=== PATIENT | female | born 1980 | race Caucasian/White ===

== ENCOUNTER → 2016-11-16 | Outpatient (REF) | payer OTHER | LOC: M SFHCLERA 15:58 | PROVIDERS: ATTEND Physician Assistant | DX: R73.01 Impaired fasting glucose (principal); E03.9 Hypothyroidism, unspecified ==

== ENCOUNTER → 2017-05-27 | Outpatient (REF) | payer OTHER ==
[2017-05-27 21:22] LABS: ESTIMATED AVERAGE GLUCOSE 174 MG/DL (60-110); HEMOGLOBIN A1c 7.7 %
[2017-05-27 21:25] LABS: TOTAL 25(OH) VITAMIN D 43.4 NG/ML (30.0-100.0)
[2017-05-27 21:26] LABS: ALBUMIN 3.8 GM/DL (3.2-5.2); ALBUMIN/GLOBULIN RATIO 1.12 (1.00-1.93); ALKALINE PHOSPHATASE 92 U/L (45-117); ALT/SGPT 23 U/L (12-78); ANION GAP 8 MEQ/L (8-16); AST/SGOT 9 U/L (7-37); BILIRUBIN,TOTAL 0.5 MG/DL (0.2-1.0); BLOOD UREA NITROGEN 17 MG/DL (7-18); CALCIUM LEVEL 8.5 MG/DL (8.5-10.1); CARBON DIOXIDE LEVEL 28 MEQ/L (21-32); CHLORIDE LEVEL 102 MEQ/L (98-107); CREATININE FOR GFR 0.94 MG/DL (0.55-1.30); GLOMERULAR FILTRATION RATE > 60.0 (>60); GLUCOSE, FASTING 140 MG/DL (70-100); POTASSIUM SERUM 4.3 MEQ/L (3.5-5.1); SODIUM LEVEL 138 MEQ/L (136-145); TOTAL PROTEIN 7.2 GM/DL (6.4-8.2)
== END ==
LOC: M SFHCLERA 16:09
DX: E11.65 Type 2 diabetes mellitus with hyperglycemia (principal); E03.9 Hypothyroidism, unspecified; E55.9 Vitamin D deficiency, unspecified

== ENCOUNTER → 2018-01-19 | Outpatient (REF) | payer OTHER ==
[2018-01-19 19:16] LABS: ESTIMATED AVERAGE GLUCOSE 146 MG/DL (60-110); HEMOGLOBIN A1c 6.7 %
[2018-01-19 19:19] LABS: THYROID STIMULATING HORMONE 0.744 uIU/ML (0.358-3.740)
[2018-01-19 19:33] LABS: TESTOSTERONE 13 NG/DL (14-76)
[2018-01-23 00:09] LABS: ESTROGENS TOTAL 70 pg/mL (.)
[2018-01-26 00:07] LABS: TESTOSTERONE DI-5-ALPHA LEVEL 2.8 ng/dL (.)
== END ==
LOC: M SFHCPLAZ 15:23
DX: L65.8 Other specified nonscarring hair loss (principal); E03.9 Hypothyroidism, unspecified; E11.65 Type 2 diabetes mellitus with hyperglycemia

== ENCOUNTER → 2019-03-12 | Outpatient (REF) | payer OTHER ==
[2019-03-12 20:24] LABS: HEMATOCRIT 42.5 % (36.0-47.0); HEMOGLOBIN 13.7 g/dl (12.0-15.5)
[2019-03-12 20:31] LABS: BLOOD UREA NITROGEN 8 MG/DL (7-18); CALCIUM LEVEL 9.4 MG/DL (8.5-10.1); CARBON DIOXIDE LEVEL 27 MEQ/L (21-32); CHLORIDE LEVEL 101 MEQ/L (98-107); CHOLESTEROL LEVEL 209 MG/DL (<200); CHOLESTEROL RISK RATIO 4.976 (<5); CREATININE FOR GFR 0.78 MG/DL (0.55-1.30); GLOMERULAR FILTRATION RATE > 60.0 (>60); GLUCOSE, FASTING 100 MG/DL (70-100); HDL CHOLESTEROL 42 MG/DL (>40); LDL CHOLESTEROL 111 MG/DL (<100); NON-HDL-C 167 MG/DL; POTASSIUM SERUM 4.3 MEQ/L (3.5-5.1); SODIUM LEVEL 136 MEQ/L (136-145); TRIGLYCERIDES LEVEL 282 MG/DL (<150)
[2019-03-12 20:39] LABS: MALB URINE SIEMENS 22.1 MG/L; MAU/CREAT RATIO 20.4 MCG/MG (0.0-30.0)
[2019-03-12 20:40] LABS: VITAMIN B12 LEVEL 458 PG/ML (247-911)
[2019-03-12 20:43] LABS: HEMOGLOBIN A1c 6.9 %
== END ==
LOC: M SFHCLERA 14:50
PROVIDERS: ATTEND Family Medicine
DX: E11.9 Type 2 diabetes mellitus without complications (principal)

== ENCOUNTER → 2019-10-08 | Outpatient (REF) | payer OTHER ==
[2019-10-08 16:51] LABS: HEMOGLOBIN A1c 7.9 %
[2019-10-08 17:01] LABS: BLOOD UREA NITROGEN 10 MG/DL (7-18); CALCIUM LEVEL 9.3 MG/DL (8.5-10.1); CARBON DIOXIDE LEVEL 22 MEQ/L (21-32); CHLORIDE LEVEL 105 MEQ/L (98-107); CREATININE FOR GFR 0.76 MG/DL (0.55-1.30); GLOMERULAR FILTRATION RATE > 60.0 (>60); GLUCOSE, FASTING 100 MG/DL (70-100); POTASSIUM SERUM 4.1 MEQ/L (3.5-5.1); SODIUM LEVEL 138 MEQ/L (136-145)
== END ==
LOC: M SFHCLERA 14:10
PROVIDERS: ATTEND Family Medicine
DX: E11.9 Type 2 diabetes mellitus without complications (principal)

== ENCOUNTER → 2019-12-27 | Outpatient (CLI) | payer OTHER ==
--- NOTE | 2020-01-14 17:02 | REP ---
GALLBLADDER ULTRASOUND: CLINICAL: Right upper quadrant pain with nausea, vomiting and diarrhea. TECHNIQUE: Real time, campos scale and color evaluation using curved array transducer. FINDINGS: The liver demonstrates a few scattered hypoechoic areas within the right lobe measuring 1.5 cm maximal diameter and within the left lobe measuring 1.9 cm and 1.5 cm maximal diameter which are nonspecific in their appearance and may represent complex cysts or atypical hemangiomas as well as other lesions. The pancreas is normal in appearance and echotexture. The gallbladder is unremarkable and without gallstones, wall thickening or pericholecystic fluid. No biliary ductal dilatation is appreciated and the common bile duct measures 6.5 mm diameter. The right kidney is normal in reniform shape without hydronephrosis and measures 11.5 x 6.1 x 4.6 cm. No ascites in the visualized right upper quadrant. IMPRESSION: 1. Three hypodense lesions within the liver as described above. Findings are nonspecific by ultrasound and were not identified on prior ultrasound of 04/29/08. Consider pre and post contrast CT of the abdomen for further investigation. 2. Otherwise, normal right upper quadrant and gallbladder ultrasound. MTDD
== END ==
LOC: M RAD 06:02
PROVIDERS: ATTEND Nurse Practitioner Family
DX: K76.9 Liver disease, unspecified (principal); R11.2 Nausea with vomiting, unspecified; R19.7 Diarrhea, unspecified; R10.11 Right upper quadrant pain

== ENCOUNTER → 2020-01-16 | Outpatient (CLI) | payer OTHER ==
[2020-01-16 11:30] LABS: ALBUMIN 3.7 GM/DL (3.2-5.2); BILIRUBIN,DIRECT 0.1 MG/DL (0.0-0.2); BILIRUBIN,TOTAL 0.3 MG/DL (0.2-1.0); FREE T4 1.43 NG/DL (0.76-1.46); THYROID STIMULATING HORMONE 0.605 uIU/ML (0.358-3.740); TOTAL PROTEIN 7.1 GM/DL (6.4-8.2)
== END ==
LOC: M LAB 10:14
PROVIDERS: ATTEND Internal Medicine Gastroenterology
DX: R11.10 Vomiting, unspecified (principal)

== ENCOUNTER → 2020-01-19 | Outpatient (REF) | payer OTHER | LOC: M LAB REF 09:22 | PROVIDERS: ATTEND Internal Medicine Gastroenterology | DX: R11.10 Vomiting, unspecified (principal) ==

== ENCOUNTER → 2020-02-07 | Outpatient (CLI) | payer OTHER ==
[2020-02-07 09:58] LABS: BLOOD UREA NITROGEN 13 MG/DL (7-18); CALCIUM LEVEL 9.4 MG/DL (8.5-10.1); CARBON DIOXIDE LEVEL 26 MEQ/L (21-32); CHLORIDE LEVEL 101 MEQ/L (98-107); CHOLESTEROL LEVEL 194 MG/DL (<200); CHOLESTEROL RISK RATIO 4.511 (<5); CREATININE FOR GFR 0.88 MG/DL (0.55-1.30); GLOMERULAR FILTRATION RATE > 60.0 (>60); GLUCOSE, FASTING 115 MG/DL (70-100); HDL CHOLESTEROL 43 MG/DL (>40); LDL CHOLESTEROL 111 MG/DL (<100); NON-HDL-C 151 MG/DL; POTASSIUM SERUM 4.5 MEQ/L (3.5-5.1); SODIUM LEVEL 136 MEQ/L (136-145); TRIGLYCERIDES LEVEL 199 MG/DL (<150)
[2020-02-07 10:11] LABS: MALB URINE SIEMENS 22.5 MG/L; MAU/CREAT RATIO 13.9 MCG/MG (0.0-30.0)
[2020-02-07 10:31] LABS: HEMOGLOBIN A1c 6.8 %
== END ==
LOC: M LAB 08:31
PROVIDERS: ATTEND Family Medicine
DX: E78.2 Mixed hyperlipidemia (principal); E11.9 Type 2 diabetes mellitus without complications

== ENCOUNTER → 2020-02-29 | Outpatient (CLI) | payer OTHER ==
[~2020-02-29] MED LIST: PROHANCE 279.3MG/ML 15ML VIAL As Ordered ONE; PROHANCE 279.3MG/ML 5ML VIAL As Ordered ONE
--- NOTE | 2020-02-29 14:38 | REP ---
INDICATION: ABNORMAL FINDINGS ON DX IMAGING OF LIVER AND BILIARY TRACT. MRCP and MRI protocol. COMPARISON: Comparison CT study February 12, 2020.. TECHNIQUE: Axial and coronal T2 weighted scans are followed by MRCP acquisition. Maximum 10 City projection images are re-formatted. Axial and coronal imaging planes are utilized. MRI sequences include spin echo, fast spin echo, FLAIR, in and out of phase, diffusion, and dynamically acquired sequential postcontrast images. Gadolinium enhancement dose is 18 mL of intravenous ProHance. FINDINGS: The intrahepatic and extrahepatic biliary tract is normal in caliber. By pancreatic duct is normal in caliber and course. There is no evidence of biliary calculus or mass lesion. On T2 weighted scans, there area 5 separate focal T2 hyperintense lesions in the left and right lobe of the liver. Some of these correspond with the lesions identified by ultrasound. These are essentially isointense on signal intensity on T1 weighted scans. Lesions are most conspicuous on arterial phase post-contrast T1 weighted imaging indicating that they are hypervascularr. Largesr of these is in the left lobe anteriorly measuring 2.1 cm. 12 mm or less in diameter. This arterial phase sequence demonstrates that there are actually had a number of punctate foci of hypervascularity which may be small similar lesions. With subsequent equilibrium and delayed 10 minutes postcontrast imaging, these lesions retained blood pool level activity No renal pancreatic or splenic mass lesion is seen. Normal adrenal glands are observed bilaterally. No retroperitoneal mass mass or adenopathy is observed. The liver is at the upper range of normal with a 16.4 cm midclavicular vertical span. IMPRESSION: Numerous hypervascular liver lesions ranging from punctate foci of hypervascularity to the lesion in the left lobe measuring 2.1 cm. These are not typical of benign hemangiomas in that they are hypoechoic on ultrasound and homogeneously hypervascular on the arterial phase sequence. Adenomas can be multiple. Focal nodular hyperplasia is in the differential. Hypervascular metastases cannot be excluded. Recommendation: Consider ultrasound directed needle aspiration biopsy. <Electronically signed by Gary Wright > 02/29/20 7200
== END ==
LOC: M RAD 11:06
PROVIDERS: ATTEND Internal Medicine Gastroenterology
DX: R93.2 Abnormal findings on diagnostic imaging of liver and biliary tract (principal); K76.89 Other specified diseases of liver
CPT/HCPCS: 74183; A9576

== ENCOUNTER → 2020-03-16 | Outpatient (CLI) | payer OTHER ==
[~2020-03-16] MED LIST changes: +ACET500T15 PO; +BUPR150T5 PO; +DICY20TA11 PO; +LEVO137T2 PO; +LISI10TA4 PO; +METF-838 PO; +METF500T13 PO; +OMEP-221 PO; -PROHANCE 279.3MG/ML 15ML VIAL As Ordered ONE; -PROHANCE 279.3MG/ML 5ML VIAL As Ordered ONE; +SETL1TAB PO; +SPIR-10 PO
== END ==
LOC: M LABSMTC 09:18
PROVIDERS: ATTEND Anesthesiology
DX: Z01.812 Encounter for preprocedural laboratory examination (principal); Z20.828 Contact with and (suspected) exposure to other viral communicable diseases

== ENCOUNTER 2020-03-21 07:23 | Day surgery (SDC) | payer OTHER ==
[~2020-03-21] VITALS: Ht 167.6 cm; Wt 92.4 kg
[~2020-03-21 07:23] MED LIST changes: +NS 1,000 ML IV ONE
[2020-03-21] MEDS ORDERED: propofoL 200 MG/20 ML VIAL As Ordered ONE ×2 (09:01→09:14)
[2020-03-21] MEDS ORDERED: LIDOCAINE 2% 100MG/5ML SDV (FOR ANES.) As Ordered ONE (09:01)
--- NOTE | 2020-03-21 09:24 | ROOR ---
Patient Name: Ne Sim Procedure Date: 03/21/2020 8:53 AM Date of : 1980 Age: 39 Room: [facility] Gender: Female Note Status: Finalized Procedure: Colonoscopy Indications: Suspected irritable bowel syndrome, Change in bowel habits Providers: Seamus SAPP MD Referring MD: DAVON BIRMINGHAM MD Requesting Provider: Medicines: Monitored Anesthesia Care Complications: No immediate complications. Procedure: Pre-Anesthesia Assessment: - The heart rate, respiratory rate, oxygen saturations, blood pressure, adequacy of pulmonary ventilation, and response to care were monitored throughout the procedure. The Colonoscope was introduced through the anus and advanced to 10 cm into the ileum. The colonoscopy was performed without difficulty. The patient tolerated the procedure well. The quality of the bowel preparation was good. Findings: The perianal and digital rectal examinations were normal. The entire examined colon appeared normal on direct and retroflexion views. The terminal ileum appeared normal. Impression: - Small internal hemorrhoids. - The entire colon is normal on direct and retroflexion views. - The examined portion of the ileum was normal. - No specimens collected. - (Irritable Bowel Syndrome/IBS suspected.) Recommendation: - Continue present medications. - As discussed, your MRI liver was abnormal. Liver biopsy is required. - My office will call you in the next few days to set you up for this study/exam. Procedure Code(s): --- Professional --- 25897, Colonoscopy, flexible; diagnostic, including collection of specimen(s) by brushing or washing, when performed (separate procedure) Diagnosis Code(s): --- Professional --- R19.4, Change in bowel habit CPT copyright 2019 [employer]. All rights reserved. The codes documented in this report are preliminary and upon pocket operator review may be revised to meet current compliance requirements. Seamus Sapp MD Seamus SAPP MD 03/21/2020 9:24:52 AM Electronically signed by Seamus SAPP MD Number of Addenda: 0 Note Initiated On: 03/21/2020 8:53 AM Estimated Blood Loss: Estimated blood loss: none.
--- NOTE | 2020-03-21 09:26 | ROOR ---
Patient Name: Ne Sim Procedure Date: 03/21/2020 8:52 AM Date of : 1980 Age: 39 Room: [facility] Gender: Female Note Status: Finalized Procedure: Upper GI endoscopy Indications: Epigastric abdominal pain, Nausea with vomiting (resolved) Providers: Seamus SAPP MD Referring MD: DAVON BIRMINGHAM MD Requesting Provider: Medicines: Monitored Anesthesia Care Complications: No immediate complications. Procedure: Pre-Anesthesia Assessment: - The heart rate, respiratory rate, oxygen saturations, blood pressure, adequacy of pulmonary ventilation, and response to care were monitored throughout the procedure. The Endoscope was introduced through the mouth, and advanced to the second part of duodenum. The upper GI endoscopy was accomplished without difficulty. The patient tolerated the procedure well. Findings: The esophagus was normal. The stomach was normal. The examined duodenum was normal. Impression: - Normal esophagus. - Normal stomach. - Normal examined duodenum. - No specimens collected. Recommendation: - Continue present medications. - Observe patient's clinical course. Procedure Code(s): --- Professional --- 05236, Esophagogastroduodenoscopy, flexible, transoral; diagnostic, including collection of specimen(s) by brushing or washing, when performed (separate procedure) Diagnosis Code(s): --- Professional --- R11.2, Nausea with vomiting, unspecified R10.13, Epigastric pain CPT copyright 2019 [employer]. All rights reserved. The codes documented in this report are preliminary and upon slip cover cutter review may be revised to meet current compliance requirements. Seamus Sapp MD Seamus SAPP MD 03/21/2020 9:26:18 AM Electronically signed by Seamus SAPP MD Number of Addenda: 0 Note Initiated On: 03/21/2020 8:52 AM Estimated Blood Loss: Estimated blood loss: none.
[2020-03-21 09:45] VITALS: BP 130/76
== END 2020-03-21 09:52 | disposition home or self-care (01) ==
LOC: M OPP 07:23
PROVIDERS: ATTEND Internal Medicine Gastroenterology
DX: R19.4 Change in bowel habit (principal); R11.2 Nausea with vomiting, unspecified; R10.13 Epigastric pain; E11.9 Type 2 diabetes mellitus without complications; Z79.84 Long term (current) use of oral hypoglycemic drugs; Z79.899 Other long term (current) drug therapy; Z80.0 Family history of malignant neoplasm of digestive organs; Z80.3 Family history of malignant neoplasm of breast

== ENCOUNTER → 2020-03-27 | Outpatient (CLI) | payer OTHER ==
[~2020-03-27] MED LIST changes: -NS 1,000 ML IV ONE
[2020-03-27 09:10] LABS: BASO # 0.1 10^3/uL (0.0-0.2); BASO % 0.6 % (0.0-1.0); EOS # 0.2 10^3/uL (0.0-0.5); EOS % 2.1 % (0.0-3.0); HEMATOCRIT 40.8 % (36.0-47.0); HEMOGLOBIN 13.4 g/dl (12.0-15.5); LYMPH % 27.5 % (24.0-44.0); MEAN CORPUSCULAR HEMOGLOBIN 28.9 pg (27.0-33.0); MEAN CORPUSCULAR HGB CONC 32.8 g/dl (32.0-36.5); MEAN CORPUSCULAR VOLUME 87.9 fl (80.0-96.0); MONO # 0.5 10^3/uL (0.0-0.8); MONO % 4.7 % (0.0-5.0); NEUTROPHILS % 64.4 % (36.0-66.0); PLATELET COUNT, AUTOMATED 347 10^3/uL (150-450); RED BLOOD COUNT 4.64 10^6/uL (4.00-5.40); WHITE BLOOD COUNT 10.9 10^3/uL (4.0-10.0)
[2020-03-27 09:44] LABS: ALBUMIN 3.6 GM/DL (3.2-5.2); BILIRUBIN,DIRECT 0.1 MG/DL (0.0-0.2); BILIRUBIN,TOTAL 0.3 MG/DL (0.2-1.0); TOTAL PROTEIN 7.1 GM/DL (6.4-8.2)
[2020-03-27 10:10] LABS: INR 0.96; PARTIAL THROMBOPLASTIN TIME 27.5 SECONDS (24.2-38.5)
== END ==
LOC: M LAB 08:30
PROVIDERS: ATTEND Internal Medicine Gastroenterology
DX: R93.3 Abnormal findings on diagnostic imaging of other parts of digestive tract (principal)

== ENCOUNTER → 2020-04-02 | Outpatient (CLI) | payer OTHER ==
[~2020-04-02] MED LIST changes: +LIDOCAINE 1% MDV 20ML VIAL As Ordered ONE; +SODIUM BICARBONATE 8.4% INJ 50MEQ 50 ML VIAL As Ordered ONE
[2020-04-02 11:45] VITALS: BP 132/81
--- NOTE | 2020-04-02 13:52 | REP ---
INDICATION: NEOPLASM OF UNCERTAIN BEHAVIOR LIVER. COMPARISON: None. TECHNIQUE: The procedure was performed by Davina Reaves [facility], under the direct supervision of Dr. Wright. The risks and benefits of the procedure were explained to the patient and an informed consent was obtained both verbally and written. Directly prior to the start of the procedure a formal time-out was completed in the procedure room. FINDINGS: Using ultrasound guidance the mass in the dome of the left lobe of the liver was localized. The skin was prepped and draped in a sterile fashion. Thirteen mL of buffered lidocaine was used as a local anesthetic. Using ultrasound guidance a 19/20 gauge coaxial needle biopsy system was inserted and advanced into the left lobe of the liver. Six core biopsy specimens were obtained and sent to pathology for further analysis. The patient tolerated the procedure well and there were no immediate complications. After the appropriate amount of monitored convalescence the patient was discharged from the department. IMPRESSION: 1. Ultrasound-guided left lobe liver mass biopsy. <Electronically signed by Davina Reaves > 04/02/20 1220 <Electronically signed by Gary Wright > 04/02/20 0232
== END ==
LOC: M IRPRO 07:47
PROVIDERS: ATTEND Internal Medicine Gastroenterology
DX: D37.6 Neoplasm of uncertain behavior of liver, gallbladder and bile ducts (principal); K76.0 Fatty (change of) liver, not elsewhere classified; K76.89 Other specified diseases of liver

== ENCOUNTER 2020-09-06 09:06 | Emergency (ER) | payer OTHER ==
[~2020-09-06] VITALS: Ht 165.1 cm; Wt 90.2 kg
[~2020-09-06 09:06] MED LIST changes: -LIDOCAINE 1% MDV 20ML VIAL As Ordered ONE; +LISI10TA22 PO; -LISI10TA4 PO; -SODIUM BICARBONATE 8.4% INJ 50MEQ 50 ML VIAL As Ordered ONE
[2020-09-06] MEDS ORDERED: EPINEPHrine INJ 1 MG/ML 1ML AMP IM PRN (10:15)
[2020-09-06] MEDS ORDERED: methylPREDNISolone 125MG 2ML VIAL IV PRN (10:15)
[2020-09-06] MEDS ORDERED: ALBUTEROL 90 MCG/ACT 8GM HFA INHALER INH PRN (10:15)
[2020-09-06] MEDS ORDERED: ALBUTEROL SULFATE 2.5 MG/0.5 ML INH NEB SOLN INH PRN (10:15)
[2020-09-06] MEDS ORDERED: CASIRIVIMAB (REGN10933) 1,200 MG, IMDEVIMAB (REGN10987) 1,200 MG in NS 230 ML IV ONE (10:15)
[2020-09-06] MEDS ORDERED: NS 1,000 ML IV SCH (10:15)
[2020-09-06] MEDS ORDERED: diphenhydrAMINE 50MG/ML VIAL (J1200) IV PRN (10:15)
[2020-09-06 11:00] VITALS: BP 107/55
== END 2020-09-06 11:37 | disposition home or self-care (01) ==
LOC: M ED 09:06
DX: U07.1 COVID-19 (principal); E11.9 Type 2 diabetes mellitus without complications; I10 Essential (primary) hypertension; J45.909 Unspecified asthma, uncomplicated; F41.9 Anxiety disorder, unspecified; F32.9 Major depressive disorder, single episode, unspecified; Z79.84 Long term (current) use of oral hypoglycemic drugs; Z79.3 Long term (current) use of hormonal contraceptives; Z79.899 Other long term (current) drug therapy

== ENCOUNTER 2020-09-06 10:27 | Outpatient (CLI) | payer OTHER ==
[~2020-09-06] VITALS: Ht 165.1 cm; Wt 90.7 kg
[2020-09-06] MEDS ORDERED: ALBUTEROL 90 MCG/ACT 8GM HFA INHALER INH PRN (11:00)
[2020-09-06] MEDS ORDERED: EPINEPHrine INJ 1 MG/ML 1ML AMP IM PRN (11:00)
[2020-09-06] MEDS ORDERED: methylPREDNISolone 125MG 2ML VIAL IV PRN (11:00)
[2020-09-06] MEDS ORDERED: ALBUTEROL SULFATE 2.5 MG/0.5 ML INH NEB SOLN INH PRN (11:00)
[2020-09-06] MEDS ORDERED: diphenhydrAMINE 50MG/ML VIAL (J1200) IV PRN (11:00)
[2020-09-06 11:37] VITALS: BP 109/57
--- NOTE | 2020-09-06 12:10 | CR.PDOC ---
General Date of Consultation: September 06, 2020 Referring Provider: Cem Nath M.D. Attending Physician: LUCINA MCMAHON MD Consultation REASON FOR CONSULTATION/CHIEF COMPLAINT: SOB with confirmed covid-19 infection for antibody infusion for high risk patient. HISTORY OF PRESENT ILLNESS: 39 yo W with a history of HTN, GERD, DM, hypothyroidism, history of liver lesions?, depression and anxiety who presented to urgent care clinic this AM for SOB and was diagnosed with covid-19 infection and sent to the ED for evaluation. In the ED, she was hemodynamically stable, afebrile, saturating 98% on room air and on exertion and given her history of noted above, was recommended for medicine evaluation for antibody infusion for prevention of development of severe covid-19 infection. On my evaluation, she denied recently noted fever or chills but reported some shortness of breath and feeling poorly in general. She asked about her upcoming covid vaccination and I recommended that she postpones vaccination for at least a month, for sure at least 2 weeks while she recovers from the ongoing active infection and self isolate at home until all her symptoms resolve up to 14 days. She is now being admitted for observation in the outpatient setting for casarivimab and emdevimab infusion and will be discharged home shortly after. At this time, I have explained the therapy and its risk and benefits and she consents to receiving the therapy. ALLERGIES: Please see below. HOME MEDICATIONS: Please see below. PAST MEDICAL HISTORY: per HPI FAMILY HISTORY: HTN, DM SOCIAL HISTORY: No alcohol, non-smoker, no illicit drugs REVIEW OF SYSTEMS: 10 point ROS was grossly negative except as reported in the HPI. PHYSICAL EXAMINATION: VITAL SIGNS: Please see below. GENERAL APPEARANCE: NAD HEENT: Has central alopecia with sparse hair, clear sclerae, anicteric, MMM RESPIRATORY: CTAB, no crackles or wheezing CARDIOVASCULAR: RRR, no m/r/g ABDOMEN: Normoactive sounds, soft, NTND EXTREMITIES: WWP, no edema NEUROLOGICAL: CN2-12 intact, grossly nonfocal examination PSYCHIATRIC: AOx3 LABORATORY DATA: Please see below. ASSESSMENT: 39 yo W who presented to the ED per the direction of urgent clinic after diagnosis of covid-19 infection with reported SOB and found to be hemodynamically stable with great oxygen saturation on room air and on exertion who is now being admitted for observation while she receives casarivimab and imdevimab infusion for prevention of development of severe covid-19 disease. Covid-19 infection: with a backgroung history of obesity, HTN, DM -consented for casarivimab and imdevimab infusion Chronic conditions: -To continue all her home meds on discharge home Allergies Coded Allergies: No Known Drug Allergies (Verified Allergy, Unknown, 03/20/20) Home Medications Scheduled Bupropion Hcl (Bupropion HCl Sr) 150 Mg Tab.sr.12h, 1 TAB PO BID, (Reported) Levonorgestrel-Ethin Estradiol (Setlakin 0.15 mg-0.03 mg Tab) 1 Each Tbdspk.3mo, 1 TAB PO DAILY, (Reported) Levothyroxine Sodium (Levothyroxine Sodium) 137 Mcg Tablet, 1 TAB PO DAILY, (Reported) Lisinopril (Lisinopril) 10 Mg Tablet, 1 TAB PO DAILY, (Reported) Metformin HCl (Metformin HCl ER) 500 Mg Tab.er.24h, 1,000 MG PO QHS, (Reported) Metformin HCl (Metformin HCl) 500 Mg Tablet, 500 MG PO DAILY, (Reported) Omeprazole (Omeprazole) 40 Mg Capsule.dr, 1 CAP PO DAILY, (Reported) Spironolactone (Spironolactone) 25 Mg Tablet, 1 TAB PO DAILY, (Reported) LUCINA MCMAHON MD September 06, 2020 12:09
[2020-09-06] MEDS ORDERED: NS 1,000 ML IV SCH (12:30)
[2020-09-06] MEDS ORDERED: CASIRIVIMAB (REGN10933) 1,200 MG, IMDEVIMAB (REGN10987) 1,200 MG in NS 230 ML IV ONE (14:00)
[2020-09-06 14:15] VITALS: BP 104/63
[2020-09-06 14:45] VITALS: BP 109/67
[2020-09-06 15:45] VITALS: BP 120/75
== END 2020-09-06 16:08 | disposition home or self-care (01) ==
LOC: M OPCLI4 10:27 → M 4MAIN 11:45 → M OPCLI4 16:08
PROVIDERS: ATTEND Internal Medicine
DX: U07.1 COVID-19 (principal)

== ENCOUNTER → 2021-01-23 | Outpatient (CLI) | payer OTHER ==
[2021-01-23 20:08] LABS: HEMOGLOBIN A1c 6.3 %
[2021-01-23 20:21] LABS: BLOOD UREA NITROGEN 15 MG/DL (7-18); CALCIUM LEVEL 9.8 MG/DL (8.5-10.1); CARBON DIOXIDE LEVEL 30 MEQ/L (21-32); CHLORIDE LEVEL 100 MEQ/L (98-107); CHOLESTEROL LEVEL 208 MG/DL (<200); CHOLESTEROL RISK RATIO 4.622 (<5); CREATININE FOR GFR 0.88 MG/DL (0.55-1.30); GLOMERULAR FILTRATION RATE > 60.0 (>60); GLUCOSE, FASTING 92 MG/DL (70-100); HDL CHOLESTEROL 45 MG/DL (>40); LDL CHOLESTEROL 115 MG/DL (<100); NON-HDL-C 163 MG/DL; POTASSIUM SERUM 4.1 MEQ/L (3.5-5.1); SODIUM LEVEL 137 MEQ/L (136-145); THYROID STIMULATING HORMONE 0.434 uIU/ML (0.358-3.740); TRIGLYCERIDES LEVEL 240 MG/DL (<150)
[2021-01-23 20:25] LABS: CREATININE, URINE 86.3 MG/DL; CREATININE,RANDOM URINE 86.3 MG/DL; MALB URINE SIEMENS 17.2 MG/L; MAU/CREAT RATIO 19.9 MCG/MG (0.0-30.0)
== END ==
LOC: M WUC 14:57
PROVIDERS: ATTEND Family Medicine
DX: E11.9 Type 2 diabetes mellitus without complications (principal); E78.2 Mixed hyperlipidemia; E03.9 Hypothyroidism, unspecified

== ENCOUNTER → 2021-04-20 | Outpatient (CLI) | payer OTHER ==
[2021-04-20 17:14] LABS: BLOOD UREA NITROGEN 12 MG/DL (7-18); CREATININE FOR GFR 0.77 MG/DL (0.55-1.30); GLOMERULAR FILTRATION RATE > 60.0 (>60)
== END ==
LOC: M WUC 13:25
PROVIDERS: ATTEND Internal Medicine Gastroenterology
DX: R93.3 Abnormal findings on diagnostic imaging of other parts of digestive tract (principal)

== ENCOUNTER → 2021-04-23 | Outpatient (CLI) | payer OTHER ==
[~2021-04-23] MED LIST changes: +PROHANCE 279.3MG/ML 15ML VIAL As Ordered ONE; +PROHANCE 279.3MG/ML 5ML VIAL As Ordered ONE
== END ==
LOC: M RAD 13:36
PROVIDERS: ATTEND Internal Medicine Gastroenterology
DX: D37.6 Neoplasm of uncertain behavior of liver, gallbladder and bile ducts (principal); R93.3 Abnormal findings on diagnostic imaging of other parts of digestive tract; K76.89 Other specified diseases of liver
CPT/HCPCS: 74183; A9576

== ENCOUNTER → 2021-12-18 | Outpatient (CLI) | payer OTHER ==
[~2021-12-18] MED LIST changes: +BUPR-71 PO; -BUPR150T5 PO; -DICY20TA11 PO; +DICY20TA20 PO; -OMEP-221 PO; +OMEP40CA5 PO; -PROHANCE 279.3MG/ML 15ML VIAL As Ordered ONE; -PROHANCE 279.3MG/ML 5ML VIAL As Ordered ONE
[2021-12-18 17:05] LABS: HEMOGLOBIN A1c 7.1 %
[2021-12-18 17:27] LABS: ALBUMIN 3.8 GM/DL (3.2-5.2); ALT/SGPT 54 U/L (12-78); BILIRUBIN,TOTAL 0.2 MG/DL (0.2-1.0); BLOOD UREA NITROGEN 19 MG/DL (7-18); CALCIUM LEVEL 9.3 MG/DL (8.5-10.1); CARBON DIOXIDE LEVEL 25 MEQ/L (21-32); CHLORIDE LEVEL 102 MEQ/L (98-107); CHOLESTEROL LEVEL 194 MG/DL (<200); CHOLESTEROL RISK RATIO 6.258 (<5); CREATININE FOR GFR 0.99 MG/DL (0.55-1.30); GLOMERULAR FILTRATION RATE > 60.0 (>58); GLUCOSE, FASTING 148 MG/DL (70-100); HDL CHOLESTEROL 31 MG/DL (>40); NON-HDL-C 163 MG/DL; POTASSIUM SERUM 4.2 MEQ/L (3.5-5.1); SODIUM LEVEL 135 MEQ/L (136-145); THYROID STIMULATING HORMONE 0.485 uIU/ML (0.358-3.740); TOTAL PROTEIN 6.9 GM/DL (6.4-8.2); TRIGLYCERIDES LEVEL 505 MG/DL (<150)
[2021-12-18 17:39] LABS: MALB URINE SIEMENS 16.7 MG/L
== END ==
LOC: M WUC 14:17
PROVIDERS: ATTEND Family Medicine
DX: E11.9 Type 2 diabetes mellitus without complications (principal); K76.89 Other specified diseases of liver; E03.9 Hypothyroidism, unspecified; E78.2 Mixed hyperlipidemia

== ENCOUNTER → 2022-04-03 | Outpatient (CLI) | payer OTHER ==
[2022-04-03 12:30] LABS: HEMOGLOBIN A1c 5.7 % (4.0-6.0)
[2022-04-03 12:31] LABS: BLOOD UREA NITROGEN 7 MG/DL (9-23); CALCIUM LEVEL 9.5 MG/DL (8.5-10.1); CARBON DIOXIDE LEVEL 28 MMOL/L (20-31); CHLORIDE LEVEL 104 MMOL/L (98-107); CHOLESTEROL LEVEL 142 MG/DL (<200); CREATININE FOR GFR 0.78 MG/DL (0.55-1.30); GLOMERULAR FILTRATION RATE > 60.0 (>58); GLUCOSE, FASTING 109 MG/DL (60-100); HDL CHOLESTEROL 40.5 MG/DL (>40); LDL CHOLESTEROL 86.1 MG/DL (<100); NON-HDL-C 102 MG/DL; POTASSIUM SERUM 4.1 MMOL/L (3.5-5.1); SODIUM LEVEL 139 MMOL/L (136-145); TRIGLYCERIDES LEVEL 77 MG/DL (<150)
== END ==
LOC: M LAB 11:46
PROVIDERS: ATTEND Family Medicine
DX: E11.9 Type 2 diabetes mellitus without complications (principal); I10 Essential (primary) hypertension; E78.2 Mixed hyperlipidemia

== ENCOUNTER → 2022-05-04 | Outpatient (CLI) | payer OTHER ==
[2022-05-04 13:26] LABS: BLOOD UREA NITROGEN 10 MG/DL (9-23); CREATININE FOR GFR 0.79 MG/DL (0.55-1.30); GLOMERULAR FILTRATION RATE > 60.0 (>58)
== END ==
LOC: M WUC 10:56
PROVIDERS: ATTEND Physician Assistant Medical
DX: D37.6 Neoplasm of uncertain behavior of liver, gallbladder and bile ducts (principal)

== ENCOUNTER → 2022-05-06 | Outpatient (CLI) | payer OTHER ==
[~2022-05-06] MED LIST changes: +PROHANCE 279.3MG/ML 15ML VIAL As Ordered ONE
== END ==
LOC: M RAD 08:57
PROVIDERS: ATTEND Internal Medicine Gastroenterology
DX: D37.6 Neoplasm of uncertain behavior of liver, gallbladder and bile ducts (principal)
CPT/HCPCS: 74183; A9576

== ENCOUNTER → 2022-07-22 | Outpatient (CLI) | payer OTHER ==
[~2022-07-22] MED LIST changes: -PROHANCE 279.3MG/ML 15ML VIAL As Ordered ONE
[2022-07-22 14:04] LABS: BLOOD UREA NITROGEN 9 MG/DL (9-23); CALCIUM LEVEL 9.2 MG/DL (8.5-10.1); CARBON DIOXIDE LEVEL 31 MMOL/L (20-31); CHLORIDE LEVEL 104 MMOL/L (98-107); CREATININE FOR GFR 0.78 MG/DL (0.55-1.30); GLOMERULAR FILTRATION RATE > 60.0 (>58); GLUCOSE, FASTING 88 MG/DL (60-100); POTASSIUM SERUM 4.6 MMOL/L (3.5-5.1); SODIUM LEVEL 140 MMOL/L (136-145)
== END ==
LOC: M WUC 10:42
PROVIDERS: ATTEND Family Medicine
DX: L65.8 Other specified nonscarring hair loss (principal)

== ENCOUNTER 2023-02-14 13:52 | Emergency (ER) | payer OTHER ==
[~2023-02-14] VITALS: Ht 160 cm; Wt 68.6 kg
[2023-02-14] MEDS ORDERED: ONDANSETRON 4MG 2ML VIAL IV ONE (15:40)
[2023-02-14] MEDS ORDERED: MORPHINE 4 MG/ML 1ML VIAL IV PRN (15:40)
[2023-02-14] MEDS ORDERED: ISOVUE-370 76% 100ML VIAL As Ordered ONE (16:11)
[2023-02-14 16:18] LABS: BASO # 0.1 10^3/uL (0.0-0.2); BASO % 0.4 % (0.0-1.0); EOS # 0.1 10^3/uL (0.0-0.5); EOS % 0.6 % (0.0-3.0); HEMATOCRIT 37.1 % (36.0-47.0); HEMOGLOBIN 12.6 g/dl (12.0-15.5); LYMPH # 1.6 10^3/uL (1.5-5.0); LYMPH % 13.1 % (24.0-44.0); MEAN CORPUSCULAR HEMOGLOBIN 30.3 pg (27.0-33.0); MEAN CORPUSCULAR VOLUME 89.2 fl (80.0-96.0); MONO # 0.4 10^3/uL (0.0-0.8); MONO % 3.5 % (2.0-8.0); NEUTROPHILS # 9.9 10^3/uL (1.5-8.5); NEUTROPHILS % 81.7 % (36.0-66.0); PLATELET COUNT, AUTOMATED 301 10^3/uL (150-450); RED BLOOD COUNT 4.16 10^6/uL (4.00-5.40); WHITE BLOOD COUNT 12.2 10^3/uL (4.0-10.0)
[2023-02-14 16:43] LABS: LIPASE 33 U/L (12-53)
[2023-02-14 16:45] LABS: ALBUMIN 3.9 G/DL (3.2-5.2); ALKALINE PHOSPHATASE 68 U/L (46-116); ALT/SGPT 15 U/L (7.0-40); AMYLASE 91 U/L (30-118); AST/SGOT < 8 U/L (<34); BILIRUBIN,DIRECT 0.1 MG/DL (<0.4); BILIRUBIN,TOTAL 0.3 MG/DL (0.3-1.2); TOTAL PROTEIN 6.7 G/DL (5.7-8.2)
[2023-02-14 17:19] LABS: AMPHETAMINES LEVEL URINE NEGATIVE (NEGATIVE); BARBITURATES URINE NEGATIVE (NEGATIVE); BENZODIAZEPINES URINE NEGATIVE (NEGATIVE); COCAINE METABOLITE URINE NEGATIVE (NEGATIVE); METHADONE URINE NEGATIVE (NEGATIVE); PHENCYCLIDINE URINE NEGATIVE (NEGATIVE)
[2023-02-14 17:20] LABS: CANNABINOIDS URINE POSITIVE (NEGATIVE); OPIATES URINE POSITIVE (NEGATIVE)
[2023-02-14] MEDS ORDERED: HYDR-3713 PO (18:00)
[2023-02-14] MEDS ORDERED: [UNRECOGNIZED DRUG - SUPPLY] (18:03)
[2023-02-14] MEDS ORDERED: ROLLMIS8 XX (18:06)
[2023-02-14 18:28] VITALS: BP 127/69; TEMP 98; O2SAT 98
== END 2023-02-14 18:54 | disposition home or self-care (01) ==
LOC: M ED 13:52
DX: S32.010A Wedge compression fracture of first lumbar vertebra, initial encounter for closed fracture (principal); V49.00XA Driver injured in collision with unspecified motor vehicles in nontraffic accident, initial encounter; M43.16 Spondylolisthesis, lumbar region; M43.17 Spondylolisthesis, lumbosacral region; I10 Essential (primary) hypertension; F41.9 Anxiety disorder, unspecified; K21.9 Gastro-esophageal reflux disease without esophagitis; E11.9 Type 2 diabetes mellitus without complications; Z79.811 Long term (current) use of aromatase inhibitors; Z79.4 Long term (current) use of insulin; Z79.83 Long term (current) use of bisphosphonates; Z79.899 Other long term (current) drug therapy
CPT/HCPCS: 71260; 72110; 72125; 72128; 72131; 74177; 80047; 80076; 80307; 82150; 83605; 83690; 84702; 85025; 86850; 86900; 86901; 93041; 94760; 96374; 96375; 99284; J2405; Q9967

== ENCOUNTER → 2023-05-03 | Outpatient (REF) | payer OTHER ==
[~2023-05-03] MED LIST changes: +HYDR-3713 PO; +ROLLMIS8 XX; +[UNRECOGNIZED DRUG - SUPPLY]
[2023-05-03 12:53] LABS: RSV AMPLIFICATION NEGATIVE (NEGATIVE)
== END ==
LOC: M SFHCLERA 11:42
PROVIDERS: ATTEND Physician Assistant
DX: J06.9 Acute upper respiratory infection, unspecified (principal)

== ENCOUNTER → 2023-05-12 | Outpatient (CLI) | payer OTHER | LOC: M RAD 10:37 | PROVIDERS: ATTEND Neurological Surgery | DX: M47.27 Other spondylosis with radiculopathy, lumbosacral region (principal); M43.17 Spondylolisthesis, lumbosacral region; M48.56XD Collapsed vertebra, not elsewhere classified, lumbar region, subsequent encounter for fracture with routine healing ==

== ENCOUNTER → 2023-08-12 | Outpatient (CLI) | payer OTHER ==
[2023-08-12 17:18] LABS: BLOOD UREA NITROGEN 15 MG/DL (9-23); CALCIUM LEVEL 8.9 MG/DL (8.5-10.1); CARBON DIOXIDE LEVEL 30 MMOL/L (20-31); CHLORIDE LEVEL 102 MMOL/L (98-107); CREATININE FOR GFR 0.87 MG/DL (0.55-1.30); GLOMERULAR FILTRATION RATE > 60.0 (>58); GLUCOSE, FASTING 109 MG/DL (60-100); POTASSIUM SERUM 4.2 MMOL/L (3.5-5.1); SODIUM LEVEL 138 MMOL/L (136-145); THYROID STIMULATING HORMONE 0.029 uIU/ML (0.55-4.78)
== END ==
LOC: M WUC 13:44
PROVIDERS: ATTEND Family Medicine
DX: E03.9 Hypothyroidism, unspecified (principal); I10 Essential (primary) hypertension

== ENCOUNTER → 2025-01-31 | Outpatient (REF) | payer OTHER ==
[2025-01-31 19:37] LABS: BASO # 0.1 10^3/uL (0.0-0.2); BASO % 0.8 % (0.0-1.0); EOS # 0.3 10^3/uL (0.0-0.5); EOS % 3.5 % (0.0-3.0); LYMPH # 1.6 10^3/uL (1.5-5.0); LYMPH % 22.3 % (24.0-44.0); MONO # 0.5 10^3/uL (0.0-0.8); MONO % 6.4 % (2.0-8.0); NEUTROPHILS # 4.8 10^3/uL (1.5-8.5); NEUTROPHILS % 66.9 % (36.0-66.0); PLATELET COUNT, AUTOMATED 315 10^3/uL (150-450)
[2025-01-31 20:10] LABS: ALT/SGPT 13.0 U/L (7.0-40); AST/SGOT 8.0 U/L (<34); CALCIUM LEVEL 9.2 MG/DL (8.5-10.1); CARBON DIOXIDE LEVEL 28.0 MMOL/L (20-31); CHLORIDE LEVEL 103.0 MMOL/L (98-107); CHOLESTEROL LEVEL 166.0 MG/DL (<200); CHOLESTEROL RISK RATIO 2.89 (<5); CREATININE FOR GFR 1.01 MG/DL (0.55-1.30); GLOMERULAR FILTRATION RATE 70.8 (>58); LDL CHOLESTEROL 91.1 MG/DL (<100); NON-HDL-C 108.7 MG/DL; POTASSIUM SERUM 4.4 MMOL/L (3.5-5.1); SODIUM LEVEL 140.0 MMOL/L (136-145); TRIGLYCERIDES LEVEL 88.0 MG/DL (<150)
[2025-01-31 20:12] LABS: TOTAL 25(OH) VITAMIN D 38.9 NG/ML (20.0-100.0)
== END ==
LOC: M SFHCLERA 07:53
PROVIDERS: ATTEND Family Medicine
DX: E78.2 Mixed hyperlipidemia (principal); I10 Essential (primary) hypertension; E55.9 Vitamin D deficiency, unspecified; E03.9 Hypothyroidism, unspecified

== ENCOUNTER → 2025-03-19 | Outpatient (CLI) | payer OTHER | LOC: M WHC 10:59 | PROVIDERS: ATTEND Family Medicine | DX: Z12.31 Encounter for screening mammogram for malignant neoplasm of breast (principal) ==